=== PATIENT | female | born 1955 | race Caucasian/White ===

== ENCOUNTER → 2017-09-21 | Outpatient (CLI) | payer OTHER ==
[~2017-09-21] MED LIST: DICL75 PO; LORT5TAB PO; SYNT175T PO
[2017-09-21 13:42] LABS: BASOPHIL % 0.7 % (0.0-2.0); EOSINOPHIL # 0.3 TH/MM3 (0-0.4); EOSINOPHIL % 4.1 % (0.0-4.0); HEMATOCRIT 41.3 % (35.0-46.0); HEMOGLOBIN 13.3 GM/DL (11.6-15.3); LYMPH % 13.6 % (9.0-44.0); LYMPHOCYTE # 0.9 TH/MM3 (1.0-4.8); MEAN CELL VOLUME 87.3 FL (80.0-100.0); MEAN CORPUSCULAR HEMOGLOBIN 28.1 PG (27.0-34.0); MEAN CORPUSCULAR HGB CONC 32.2 % (32.0-36.0); MEAN PLATELET VOLUME 9.8 FL (7.0-11.0); MONO % 6.6 % (0.0-8.0); MONOCYTE # 0.4 TH/MM3 (0-0.9); PLATELET COUNT 197 TH/MM3 (150-450); RED BLOOD COUNT 4.73 MIL/MM3 (4.00-5.30); RED CELL DISTRIBUTION WIDTH 14.7 % (11.6-17.2); WHITE BLOOD COUNT 6.6 TH/MM3 (4.0-11.0)
[2017-09-21 13:46] LABS: ALBUMIN 3.2 GM/DL (3.4-5.0); ALT (GPT) 32 U/L (10-53); AST (GOT) 22 U/L (15-37); BICARBONATE 28.1 MEQ/L (21.0-32.0); BLOOD UREA NITROGEN 15 MG/DL (7-18); CALCIUM 8.6 MG/DL (8.5-10.1); CHLORIDE 107 MEQ/L (98-107); CHOLESTEROL 188 MG/DL (120-200); CREATININE 0.81 MG/DL (0.50-1.00); DIRECT BILIRUBIN ADULT 0.1 MG/DL (0.0-0.2); GLOMERULAR FILTRATION RATE 71 ML/MIN (>89); GLUCOSE,FASTING 104 MG/DL (74-99); SODIUM (NA) 143 MEQ/L (136-145)
[2017-09-21 13:56] LABS: ALKALINE PHOSPHATASE 85 U/L (45-117); CHOLESTEROL/ HDL RATIO 4.06 RATIO; HDL CHOLESTEROL 46.3 MG/DL (40.0-60.0); INDIRECT BILIRUBIN 0.4 MG/DL (0.0-0.8); LDL CHOLESTEROL 121 MG/DL (0-99); TOTAL BILIRUBIN ADULT 0.5 MG/DL (0.2-1.0); TOTAL PROTEIN 7.2 GM/DL (6.4-8.2); TRIGLYCERIDES 103 MG/DL (42-150)
[2017-09-21 17:48] LABS: HEMOGLOBIN A1C 5.6 % (4.3-6.0)
== END ==
LOC: PLAB 08:59
PROVIDERS: ATTEND Family Medicine
DX: E03.8 Other specified hypothyroidism (principal); I10 Essential (primary) hypertension; R73.9 Hyperglycemia, unspecified; R53.83 Other fatigue; E78.00 Pure hypercholesterolemia, unspecified
CPT/HCPCS: 36415; 80048; 80061; 80076; 83036; 84443; 85025